=== PATIENT | female | born 1995 | race Caucasian/White ===

== ENCOUNTER 2017-07-15 14:29 | Emergency (ER) | payer OTHER ==
[~2017-07-15] VITALS: Ht 162.6 cm; Wt 87.5 kg
[2017-07-15] MEDS ORDERED: PROMETHAZINE HC25 M1 PO (15:24)
== END 2017-07-15 18:32 | disposition home or self-care (01) ==
LOC: ED 14:29
DX: O20.9 Hemorrhage in early pregnancy, unspecified (principal); Z88.0 Allergy status to penicillin; Z3A.18 18 weeks gestation of pregnancy
CPT/HCPCS: 76815; 80053; 85025; 86850; 86900; 86901; 96361; 96374; 99284; J2405; J7030

== ENCOUNTER 2017-12-09 05:55 | Inpatient (IN) | payer OTHER ==
[~2017-12-09] VITALS: Ht 165.1 cm; Wt 103.0 kg
[~2017-12-09 05:55] MED LIST: PROMETHAZINE HC25 M1 PO
--- NOTE | 2017-12-10 08:49 | PR ---
[facility] [address] [facility] [address] [address] [place] [address] Signed PP Progress Notes Datetime Report Generated by CPN: 12/10/2017 08:49 SUBJECTIVE: [id number] Pain: Within normal limits Nausea/Vomiting: Denies Vital Signs: [id number] Vital Signs: Reviewed; Within Normal Limits EXAM: [id number] Cardiovascular: Not Done Respiratory: Not Done Abdomen/Uterus: Abnormal Lochia: Normal Vulva/Perineum: Not Done Breasts: Not Done CVA Tenderness: Not Done Extremities: Normal Incision: Not Applicable Progress: Normal Exam Comments: Fundus firm, NT @ U-1. H/H 11.6/34.2, WBC 11.4, plat 119k IMPRESSION/PLAN/PROCEDURES: [id number] Impression: Normal progression Plan: Discharge Procedures: None Progress Notes: Doing well. She desires D/C home today. Signing Physician: Jacoby Leon MD Copies: ~ *Electronically Signed* 12/10/17 0849 JACOBY LEON MD PATIENT NAME: FARAZ ALBA OSCAR PROGRESS NOTE DATE OF : [birth year] PHYSICIAN: JACOBY LEON MD RPT #: [id number] REPORT IS CONFIDENTIAL AND NOT TO BE RELEASED WITHOUT AUTHORIZATION
== END 2017-12-10 19:00 | disposition home or self-care (01) | DRG 775 ==
LOC: FBC 05:55
PROVIDERS: ADMIT Obstetrics & Gynecology
PROC: 10E0XZZ Delivery of Products of Conception, External Approach (ICD-10-PCS; principal; 2017-12-09)
PROC: 10907ZC Drainage of Amniotic Fluid, Therapeutic from Products of Conception, Via Natural or Artificial Opening (ICD-10-PCS; 2017-12-09)
PROC: 3E0P7VZ Introduction of Hormone into Female Reproductive, Via Natural or Artificial Opening (ICD-10-PCS; 2017-12-09)
DX: O69.81X0 Labor and delivery complicated by cord around neck, without compression, not applicable or unspecified (principal); O99.62 Diseases of the digestive system complicating childbirth; K21.9 Gastro-esophageal reflux disease without esophagitis; O99.214 Obesity complicating childbirth; O26.03 Excessive weight gain in pregnancy, third trimester; E66.9 Obesity, unspecified; Z68.37 Body mass index [BMI] 37.0-37.9, adult; Z88.0 Allergy status to penicillin; Z79.899 Other long term (current) drug therapy; Z3A.40 40 weeks gestation of pregnancy; Z37.0 Single live birth
CPT/HCPCS: 36415; 85027

== ENCOUNTER 2017-12-25 04:49 | Emergency (ER) | payer OTHER ==
[~2017-12-25] VITALS: Ht 165.1 cm; Wt 96.2 kg
[~2017-12-25 04:49] MED LIST changes: +CALCIUM + D3 E1 EACH PO; +IBU800 MG PO; +IRON325 M1 PO; +OMEPRAZOLE20 MG PO; +XARELTO15 MG PO; +XARELTO20 MG PO
[2017-12-25] MEDS ORDERED: KEFLEX500 MG PO (07:05)
[2017-12-25] MEDS ORDERED: NORCO 5-325 TA1 EACH PO (07:05)
== END 2017-12-25 07:15 | disposition home or self-care (01) ==
LOC: ED 04:49
DX: N39.0 Urinary tract infection, site not specified (principal); I26.99 Other pulmonary embolism without acute cor pulmonale; Z88.0 Allergy status to penicillin; Z79.899 Other long term (current) drug therapy
CPT/HCPCS: 71260; 81001; 99285; Q9967